=== PATIENT | female | born 1980 | race Caucasian/White ===

== ENCOUNTER → 2021-03-09 | Outpatient (CLI) | payer OTHER, SELFPAY ==
[2021-03-12 13:29] LABS: HPV APTIMA, High Risk Negative (Negative)
== END | disposition home or self-care (01) ==
PROVIDERS: Visit Provider Nurse Practitioner Women's Health
DX: Z12.4 Encounter for screening for malignant neoplasm of cervix (principal)
CPT/HCPCS: 87624; 88175; G0145

== ENCOUNTER → 2021-03-31 13:48 | Outpatient (CLI) | payer OTHER, SELFPAY ==
--- NOTE | 2021-03-31 13:55 | US_ITS ---
STUDY: ULTRASOUND OF THE FEMALE PELVIS - COMPLETE REASON FOR EXAM: Female, 41 years old. Pelvic pain and bloating LMP: Not specified TECHNIQUE: Transabdominal and Transvaginal TECHNICAL QUALITY: Adequate. COMPARISON: 03/31/2021 FINDINGS: The uterus is anteverted and is in a midline position. The uterus measures 9.1 x 5.7 x 4.9 cm. There is a Nabothian cyst of the cervix. The endometrium measures 12 mm in thickness, and is hyperechoic. There is no demonstrated endometrial mass. There is no demonstrated myometrial mass. I.U.D. - The patient does not have an I.U.D. The right ovary is visualized. The right ovary measures 4.5 x 4.0 x 3.8 cm. Solid lesion within the right ovary with internal vascularity measures up to 2.9 cm. There is normal arterial and normal venous vascularity. The left ovary is visualized. The left ovary measures 2.8 x 1.3 x 1.4 cm. There is no left ovarian cyst or ovarian mass. There is no visualized left adnexal mass or complex lesion. There is increased arterial and normal venous vascularity. There is no fluid in the cul-de-sac. Polycystic ovary disease: No. US/Transvaginal Non- IMPRESSION: Complex solid vascular lesion within the right ovary measures up to 2.9 cm. This may represent a hemorrhagic cyst and 6-12 weeks follow-up is recommended to document resolution. Prominent left pelvic vasculature may indicate pelvic congestion syndrome in the appropriate clinical setting. Electronically Signed: Irineo Saavedra MD at 19:36 EDT Tel , Service support ,
--- NOTE | 2021-03-31 13:55 | BI_ITS ---
MAMMOGRAPHY - BILATERAL SCREENING REASON FOR EXAM: Female, 41 years old. Routine annual screening examination. PERTINENT HISTORY: Non-contributory. TECHNIQUE: Digital bilateral breast ellie (3D mammographic acquisition) in the CC and MLO projections. 2-D mediolateral oblique (MLO) and craniocaudad (CC) views of both breasts were obtained. CAD: Full Field Digital Mammography with Computer Added Detection was performed. COMPARISON: Comparison is made with prior outside examination dated 06/14/2012. FINDINGS: Breast Composition: The breasts are extremely dense, which lowers the sensitivity of mammography. Questionable 1.4 cm nodular density in the superior mid right breast. Correlation with ultrasound is recommended. No other significant abnormalities are identified. BI/SCRN MAMM (CAD)W/ELLIE BILAT IMPRESSION: Questionable 1.4 cm nodule in the upper mid right breast at the 12 o''clock position. Correlation with ultrasound is recommended. ASSESSMENT CATEGORY: BIRADS Category 0: Incomplete. Need additional imaging evaluation. A letter regarding these results will be sent to the patient by the facility within 30 days. Approximately 10% of breast cancers are not detected by mammography. A normal mammogram should not delay biopsy of a clinically suspicious abnormality. [id number] Electronically Signed: Adi Chowdary MD at 15:28 EDT , Service support ,
--- NOTE | 2021-03-31 13:55 | US_ITS ---
STUDY: ULTRASOUND OF THE FEMALE PELVIS - COMPLETE REASON FOR EXAM: Female, 41 years old. Pelvic pain and bloating LMP: Not specified TECHNIQUE: Transabdominal and Transvaginal TECHNICAL QUALITY: Adequate. COMPARISON: 03/31/2021 FINDINGS: The uterus is anteverted and is in a midline position. The uterus measures 9.1 x 5.7 x 4.9 cm. There is a Nabothian cyst of the cervix. The endometrium measures 12 mm in thickness, and is hyperechoic. There is no demonstrated endometrial mass. There is no demonstrated myometrial mass. I.U.D. - The patient does not have an I.U.D. The right ovary is visualized. The right ovary measures 4.5 x 4.0 x 3.8 cm. Solid lesion within the right ovary with internal vascularity measures up to 2.9 cm. There is normal arterial and normal venous vascularity. The left ovary is visualized. The left ovary measures 2.8 x 1.3 x 1.4 cm. There is no left ovarian cyst or ovarian mass. There is no visualized left adnexal mass or complex lesion. There is increased arterial and normal venous vascularity. There is no fluid in the cul-de-sac. Polycystic ovary disease: No. US/Pelvic (Non ) IMPRESSION: Complex solid vascular lesion within the right ovary measures up to 2.9 cm. This may represent a hemorrhagic cyst and 6-12 weeks follow-up is recommended to document resolution. Prominent left pelvic vasculature may indicate pelvic congestion syndrome in the appropriate clinical setting. Electronically Signed: Irineo Saavedra MD at 19:36 EDT Tel , Service support ,
== END ==
PROVIDERS: Referring Provider Nurse Practitioner Women's Health; Visit Provider Nurse Practitioner Women's Health
DX: Z12.31 Encounter for screening mammogram for malignant neoplasm of breast (principal); R10.2 Pelvic and perineal pain; R14.0 Abdominal distension (gaseous); R53.83 Other fatigue
CPT/HCPCS: 76830; 76856; 77063; 77067

== ENCOUNTER → 2021-04-06 14:28 | Outpatient (CLI) | payer OTHER, SELFPAY ==
--- NOTE | 2021-04-06 14:34 | BI_ITS ---
MAMMOGRAPHY - UNILATERAL DIAGNOSTIC: RIGHT BREAST REASON FOR EXAM: Female, 41 years old. Abnormal screening mammogram. PERTINENT HISTORY: Non-contributory. TECHNIQUE: Compression spot views of the right breast in the mediolateral oblique and craniocaudad views were obtained. CAD: Full Field Digital Mammography with Computer Added Detection was performed. COMPARISON: Comparison is made with prior spot mammogram dated 03/31/2021. FINDINGS: Breast Composition: The breasts are extremely dense, which lowers the sensitivity of mammography. Persistent faint nodular density seen in the superior midportion of the right breast. Correlation with ultrasound is recommended. No other significant abnormalities are identified. BI/DIAG MAMM W/CAD, UNILAT IMPRESSION: Persistent nodular density as described. Correlation with a directed sonographic evaluation is recommended. ASSESSMENT CATEGORY: BIRADS Category 0: Incomplete. Need additional imaging evaluation. A letter regarding these results will be sent to the patient by the facility within 30 days. Approximately 10% of breast cancers are not detected by mammography. A normal mammogram should not delay biopsy of a clinically suspicious abnormality. Electronically Signed: Adi Chowdary MD at 15:21 EDT , Service support ,
--- NOTE | 2021-04-06 14:38 | US_ITS ---
STUDY: ULTRASOUND BREAST - RIGHT REASON FOR EXAM: Female, 41 years old. Abnormal screening mammogram. TECHNIQUE: Axial and longitudinal images of the RIGHT breast were performed with a high resolution ultrasound transducer. # OF IMAGES: 35 COMPARISON: Comparison is made with prior mammogram dated 03/31/2021 and 04/06/2021. FINDINGS: RIGHT Breast: The upper half of the breast was examined by ultrasound. No sonographic abnormality is seen. With the persistent faint nodular density seen on the additional mammographic views, MRI is recommended for further evaluation. US/Breast Limited Unilateral IMPRESSION: Unremarkable breast ultrasound. Correlation with MRI is recommended. ASSESSMENT CATEGORY: BIRADS Category 3: Probably Benign - Short-Interval Follow-up Suggested. A letter regarding these results will be sent to the patient by the facility within 30 days. Electronically Signed: Adi Chowdary MD at 8:14 EDT , Service support ,
[2021-04-06 17:23] LABS: Absolute Neutrophil Count 5.1 X10^3/uL (2.0-7.7); Basophil# 0.03 X10^3/uL; Basophil% 0.4 % (0-1); Eosinophil# 0.08 X10^3/uL; Eosinophils% 1.2 % (0-5); Hematocrit 39.1 % (37-47); Hemoglobin 12.8 g/dL (12.0-15.0); Lymphocyte % 14.9 % (19-41); Mean Corp Hgb Conc 32.7 g/dL (32-36); Mean Corpuscular Hgb 29.2 pg (27.0-32.0); Mean Corpuscular Volume 89.1 fL (81-99); Mean Platelet Vol. 11.5 fl (6.2-12.0); Monocyte# 0.47 X10^3/uL; NRBC Flagged by Analyzer 0 % (0-5); Neutrophil # 5.11 X10^3/uL (2.7-7.7); Neutrophil % 76.2 % (47-70); Platelet Count 178 K/mm3 (150-450); RBC Distribution Width CV 13.2 % (11.6-14.6); RBC Distribution Width SD 43.1 fl (35.1-43.9); Red Blood Count 4.39 M/mm3 (4.2-5.4); White Blood Count 6.7 K/mm3 (4.4-11.0)
[2021-04-06 18:01] LABS: Vitamin D,25 Hydroxy 34.6 ng/mL
[2021-04-06 18:16] LABS: Thyroid Stim Hormone (TSH) 2.32 uIU/mL (0.358-3.74)
[2021-04-08 16:28] LABS: Cancer Antigen 125 2303 20.2 U/mL (0.0-38.1); Carcinoembryonic Antigen 2139 0.9 ng/mL (0.0-4.7)
== END ==
PROVIDERS: Referring Provider Nurse Practitioner Women's Health; Visit Provider Nurse Practitioner Women's Health
DX: N63.12 Unspecified lump in the right breast, upper inner quadrant (principal); R92.8 Other abnormal and inconclusive findings on diagnostic imaging of breast; R10.2 Pelvic and perineal pain; R53.83 Other fatigue; Z13.21 Encounter for screening for nutritional disorder; Z13.29 Encounter for screening for other suspected endocrine disorder
CPT/HCPCS: 36415; 76642; 77065; 82306; 82378; 84443; 85025; 86304

== ENCOUNTER → 2021-04-23 17:54 | Outpatient (CLI) | payer OTHER, SELFPAY ==
--- NOTE | 2021-04-23 17:54 | MRI_ITS ---
STUDY: MR PELVIS WITH T WITHOUT CONTRAST REASON FOR EXAM: Female, 41 years old. ovarian mass-RIGHT TECHNIQUE: Standardized fat and water weighted pulse sequences were obtained in all 3 orthogonal planes, pre-and post contrast administration. IV 12mL Dotarem was administered for the contrast portion of the examination. COMPARISON: Ultrasound 03/31/2021. FINDINGS: Normal urinary bladder. Normal visualized small intestine. Normal visualized colon. Normal visualized uterus. Normal visualized adnexa. Multiple nabothian cysts in the cervix. There is a 2.1 cm dominant follicle in the right ovary. No suspicious enhancement. There is no pelvic fluid. There is no pelvic mass lesion or lymphadenopathy. Normal visualized pelvic arteries. Normal osseous structures. Normal abdominal wall. MRI/Pelvis W/WO Contrast IMPRESSION: Normal unenhanced and enhanced MRI of the pelvis. No suspicious enhancing right ovarian mass. Electronically Signed: Hank Salas MD at 20:29 EDT Tel , Service support ,
== END ==
PROVIDERS: PCP Family Medicine; Referring Provider Nurse Practitioner Women's Health; Visit Provider Nurse Practitioner Women's Health
DX: R10.2 Pelvic and perineal pain (principal)
CPT/HCPCS: 72197; A9575

== ENCOUNTER → 2021-04-27 12:35 | Outpatient (CLI) | payer OTHER, SELFPAY ==
--- NOTE | 2021-04-27 12:36 | MRI_ITS ---
STUDY: BILATERAL BREAST MR WITHOUT AND WITH CONTRAST REASON FOR EXAM: Female, 41 years old. Probably benign finding in the right breast on mammography. TECHNIQUE: Multi-sequence multi-echo imaging of both breasts was performed with a dedicated breast coil. T1-weighted and T2-weighted images were performed before the administration of contrast. T1-weighted images were also performed after the administration of 12ml Dotarem via IV without complications. COMPARISON: Bilateral screening mammogram dated 03/31/2021, right diagnostic mammogram dated 04/06/2021 and right breast ultrasound dated 04/06/2021. FINDINGS: RIGHT BREAST: The breast tissue is heterogeneously dense with minimal background enhancement. There are no abnormal enhancing masses or areas of non-mass enhancement in the right breast. LEFT BREAST: The breast tissue is heterogeneously dense with minimal background enhancement. There are no abnormal enhancing masses or areas of non-mass enhancement in the left breast. There are no enlarged or abnormal lymph nodes. There is no abnormality in the visualized regions of the chest or liver. MRI/Breast Bilateral W/O and W IMPRESSION: No abnormality corresponding to the mammographic or ultrasonographic findings. A 6 month follow-up right mammogram and right breast ultrasound recommended. CATEGORY: BIRADS Category 3: Probably Benign - Short-Interval Follow-up Suggested. A letter regarding these results will be sent to the patient by the facility within 30 days. Electronically Signed: Cedric Mccray MD at 10:39 EDT , Service support ,
== END ==
PROVIDERS: PCP Family Medicine; Referring Provider Nurse Practitioner Women's Health; Visit Provider Nurse Practitioner Women's Health
DX: R92.8 Other abnormal and inconclusive findings on diagnostic imaging of breast (principal)
CPT/HCPCS: 77049; A9575; A4216; C8908

== ENCOUNTER → 2021-05-04 08:40 | Outpatient (CLI) | payer OTHER, SELFPAY ==
[2021-05-04 10:29] LABS: Cholesterol 194 mg/dL (200); Glucose 97 mg/dL (74-106); High Density Lipoprotein 79 mg/dL; Triglycerides 81 mg/dL; Very Low Density Lipoprotein 16 mg/dL (5-40)
== END ==
PROVIDERS: PCP Family Medicine; Referring Provider Nurse Practitioner Women's Health; Visit Provider Nurse Practitioner Women's Health
DX: R53.83 Other fatigue (principal); Z13.220 Encounter for screening for lipoid disorders; Z13.1 Encounter for screening for diabetes mellitus
CPT/HCPCS: 36415; 80061; 82947

== ENCOUNTER → 2021-05-27 | Outpatient (CLI) | payer OTHER, SELFPAY ==
--- NOTE | 2021-05-27 11:50 | EMB_PTH ---
PATIENT: YVAN ARMENTA LOC: [facility] U#:[id number] AGE/SX: 41/F ROOM: RE05/27/[address]: Dr. Moriah Echevarria DO : 1980 BED: DIS: 05/27/2021 SPEC #: [id number] RECD: 05/27/21 14:27 STATUS: RAUL RIGO #: [id number] JACOBO: 05/27/21 11:[address]: Moriah Echevarria DEPT: SURGICAL PATHOLOGY RECD BY: Gisselle Pierson ENTERED: 05/28/21 12:21 SP TYPE: ENDOM BX/C RD DR: Dr. Lamont Mcneal DO Tissues: Endometrium, NOS Procedures: Surgery Specimen Level IV HEADER OPERATION: Endometrial biopsy PRE-OP DIAGNOSIS: N92.0 TISSUE SUBMITTED: Endometrial lining MICROSCOPIC DIAGNOSIS Endometrial biopsy: Secretory endometrium. SJ:corby 05/29/2021 MICROSCOPIC DESCRIPTION Slides are reviewed. GROSS DESCRIPTION Received is one container labeled with the patient's name and not further designated. The specimen consists of multiple irregular fragments of wynn soft tissue that in aggregate measure 2 x 1 x 0.1 cm. The specimen is totally submitted in one cassette. / SJ:corby 05/28/21 TC:4 CPT: 61634
== END | disposition home or self-care (01) ==
LOC: LABSPEC 14:39
PROVIDERS: PCP Family Medicine; Referring Provider Obstetrics & Gynecology; Visit Provider Obstetrics & Gynecology
DX: N92.0 Excessive and frequent menstruation with regular cycle (principal)
CPT/HCPCS: 88305

== ENCOUNTER 2021-06-30 08:00 | Day surgery (SDC) | payer OTHER, SELFPAY ==
[2021-06-30] VITALS (9 sets, daily range): BP systolic 91–128; BP diastolic 61–79; PULSE 55–69; RESP 16–18; TEMP 35.9–36.8; O2SAT 99–100; BMI 26.4
--- NOTE | 2021-06-30 07:23 | PCM.HP.BLA ---
History and Physical Date of Admission: 06/30/21 MR#:[id number]: YVAN ARMENTA #:[id number]:1980 Provider:Dr. Moriah Echevarria, DOAge/Sex: 41/F [facility] Int[facility] Visit Reasons: HYST CONSULT Allergies Penicillins Allergy (Intermediate, Verified 05/27/21 11:09) PT UNSURE OF REACTION Medications NK 05/04/21 [History Confirmed 05/27/21] PFSH Surgical History H/O umbilical hernia repair Family History Mother Lung cancer Stomach cancer Social History household members: spouse, children and other number of children: 2 current occupational status: employed current occupation: [employer] history of recent travel: Yes sexually active: Yes Smoking Status: Former smoker alcohol intake: current alcohol intake frequency: a few times a month substance use type: does not use what type of physical activity do you participate in: weight training frequency: daily seatbelt use: always do you feel safe at home: Yes additional social history: - [employer] HPI HYST CONSULT Details: YVAN ARMENTA is a 41 year old who presents for a discussion about hysterectomy. She has had worsening menses over the last 6 months and has discussed with [place] benefits vs risks of alternative options. She has a small nodule on the right ovary that has been worked up and found to be benign. She is willing and able to have an EMB today. Pregancy History 2 Elective abortions Hx Para 2 Spontaneous abortions Hx # Term Pregnancies Ectopic pregnancies Hx # Pregnancies Multiple births # of living children 2 Past Pregnancies Del. Date Name GA/Weeks Outcome Route Bth Weight Gen Labor Lgth Anesthesia Del Locatn Provider FOB Unknown Arminta 2003 Unknown Laurent 2007 ROS Const ROS Unobtainable: All systems reviewed & are unremarkable except as noted in H Resp Resp: Reports system reviewed and no additional complaints, except as documented; Denies cough GI GI: Reports as per HPI Psych Psych: Reports system reviewed and no additional complaints, except as documented Exam Const General: cooperative, healthy appearing, comfortable and no acute distress Resp Effort & Inspection: normal respiratory effort Skin General: no rashes or lesions noted Psych Appearance: grossly normal Speech and Movement: speech and movement normal Office Procedures Endometrial Biopsy Endometrial Biopsy Test: Yes declined Consent Signed: Yes Time out checklist: patient, procedure, positioning of patient, supplies available and allergies confirmed Time out time: 12:03 tenaculum used: No dilator used: No Details: Cervix prepped with betadine and pipelle inserted into uterus without complication. Specimen obtained and sent to lab for analysis. All instruments removed from vagina without complications. Excellent hemostasis noted. Coding Level of Care Code Off vis,est,level 4 Diagnoses Pelvic pain R10.2 Dysmenorrhea N94.6 Menorrhagia with regular cycle N92.0 CPT Codes Endometrial Biopsy (45959) Assessment and Plan Assessment and Plan (1) Pelvic pain: Status: Acute (2) Dysmenorrhea: Status: Acute (3) Menorrhagia with regular cycle: Status: Acute Comment: JV/surgical consult TVDavid, YVON, RO 05/27 Orders: Orders: Endometrial Biopsy Today N92.0 Plan - Dr. Moriah Andrade, DO: EMB done today. Plan for [facility] BS RO next available time. will call with abnormal results of the EMB. UPDATE- I have seen the patient and performed any clinically relevant updates to the history and physical exam. EMB was benign. Dr. Moriah Echevarria, DO
[2021-06-30] MEDS: Lactated Ringers 1,000 ML 40 ML IV (08:53)
[2021-06-30 09:00] LABS: Internal QC Validated? YES +Cl - CLEAR BKGD; Pregnancy, Urine Negative Negative
[2021-06-30 09:08] LABS: Hematocrit 40.9 % (37-47); Hemoglobin 13.6 g/dL (12.0-15.0); Mean Corp Hgb Conc 33.3 g/dL (32-36); Mean Corpuscular Hgb 28.5 pg (27.0-32.0); Mean Corpuscular Volume 85.7 fL (81-99); Mean Platelet Vol. 12.2 fl (6.2-12.0); Platelet Count 178 K/mm3 (150-450); RBC Distribution Width CV 13.2 % (11.6-14.6); RBC Distribution Width SD 40.9 fl (35.1-43.9); Red Blood Count 4.77 M/mm3 (4.2-5.4); White Blood Count 5.2 K/mm3 (4.4-11.0)
[2021-06-30] MEDS: Phenazopyridine 95 MG Tablet 190 MG PO (09:13)
[2021-06-30] MEDS: Acetaminophen 500 MG Tablet 1000 MG PO (09:13)
[2021-06-30] MEDS: Gabapentin 600 MG Tablet PO (09:13)
[2021-06-30] MEDS: Celecoxib 200 MG Capsule 400 MG PO (09:13)
[2021-06-30 09:15] LABS: Magnesium 2.2 mg/dL (1.6-2.6)
[2021-06-30 09:35] LABS: Bedside Glucose 90 mg/dL (70-110)
--- NOTE | 2021-06-30 10:04 | PCM.DC ---
Discharge Instructions Diet Discharge Diet: No restrictions Activity May resume sexual activity in: 6 weeks Weight Bearing Status: Full weight bearing Dressing / Incision Call your doctor if your incision/area has: Continuous Slow Oozing, Sudden Increased Bleeding, Increased Pain/ Swelling, Increased Redness and Foul Smelling Discharge Call your doctor if you observe: Fever of 101 or Higher, Using more than 1 pad per hour, Shortness of breath, Chest pain and Uncontrolled pain Suture Line Care: Avoid Pulling/Pushing and Avoid Pinching/Bending Remove Dressing in: 1 week (if present) Cleanse incision/area with: Soap & Water and Keep Dressing Clean & Dry Follow Up Care Please Follow Up With: Moriah Echevarria DO When: Call to make an appointment with your doctor for a postop visit in 2 and 6 weeks Test Results: Test results from this visit will be discussed in further detail at your follow-up appointment, if applicable. Discharge Plan Admission Primary Reason for Your Visit: hysterectomy Attending Provider: Moriah Echevarria Primary Care Provider: Lamont Mcneal Instructions Patient Instructions: After Laparoscopic ... Discharge Orders/Prescriptions Prescriptions: New ibuprofen 800 mg tablet 800 mg PO Q8H PRN (Reason: pain) 7 Days Qty: 30 RF: 0 oxycodone-acetaminophen [Percocet] 5-325 mg tablet 1 tab PO Q4H PRN (Reason: pain) 7 Days Qty: 28 RF: 0 docusate sodium [Colace] 100 mg capsule 100 mg PO DAILY 14 Days Qty: 14 RF: 0 Referrals / Follow Up: Lamont Mcneal DO [Primary Care Provider] - Disposition Disposition (needs filled in before D/C Order can be placed): Home, Self Care
--- NOTE | 2021-06-30 10:15 | HYST_PTH ---
PATIENT: YVAN ARMENTA LOC: [facility] U#:[id number] AGE/SX: 41/F ROOM: RE06/30/[address]: Dr. Moriah Echevarria DO : 1980 BED: DIS: 06/30/2021 SPEC #: [id number] RECD: 06/30/21 14:18 STATUS: RAUL SIERRA #: [id number] JACOBO: 06/30/21 10:[address]: Moriah Echevarria DEPT: SURGICAL PATHOLOGY RECD BY: Nettie Tatum ENTERED: 07/01/21 09:46 SP TYPE: HYSTERECT OTHR DR: Dr. Lamont Mcneal DO Tissues: Uterus, NOS Procedures: Surgery Specimen Level V HEADER OPERATION: ERAS, hysterectomy, LAVH, bilateral salpingectomy, right oophorectomy PRE-OP DIAGNOSIS: Pelvic pain, dysmenorrhea TISSUE SUBMITTED: Uterus, cervix, bilateral fallopian tubes and right ovary MICROSCOPIC DIAGNOSIS Uterus, hysterectomy: Cervix ? mild chronic inflammation. Endometrium ? secretory endometrium. Myometrium ? focal superficial adenomyosis. Right ovary ? corpus luteal cysts and corpora albicantia. Right fallopian tube ? acute salpingitis. Left fallopian tube ? benign paratubal cyst. AM:corby 07/02/2021 MICROSCOPIC DESCRIPTION Slides are reviewed. GROSS DESCRIPTION Received in fixative is one container labeled with the patient's name and designated uterus. The specimen consists of a uterus with attached right and left fallopian tubes and attached right ovary. The uterus with cervix measures 10 x 5.5 x 5 cm and weighs 135 gm. The ectocervix is grossly unremarkable. The endocervical canal measures 3.5 cm in length and is grossly unremarkable. The triangular endometrial cavity measures 3 x 2.8 cm. The velvety, reddish-wynn endometrium measures up to 0.2 cm in thickness. The myometrium measures 2.2 cm in length and is grossly unremarkable. The smooth, glistening cystic yellow-wynn right ovary measures 4 x 2.2 x 2 cm. Serial sections reveal multiple cysts ranging in size from 0.2 to 1.5 cm containing clear to bloody fluid. The adjacent right fallopian measures 6.5 cm in length and 0.8 cm in average diameter. A normal fimbrial end is present. No tubo-ovarian adhesions are identified. The left fallopian tube measures 7 cm in length and 0.7 cm in average diameter and contains a smooth, glistening paratubal cyst containing clear fluid. The cyst measures 1 cm in greatest dimension. Ld Teacher sections are submitted in nine cassettes as follows: 1 - anterior cervix, 2 - posterior cervix, 3 & 4 - anterior uterine wall, 5 & 6 - posterior uterine wall, 7 - right ovary, 8??right fallopian tube, 9 - left fallopian tube and paratubal cyst. / AM:corby 07/01/21 TC:2 CPT: 45091
[2021-06-30] MEDS: Bupivacaine 0.25% 30 ML Vial (10:46)
[2021-06-30] MEDS: Lubricating Jelly 60 GM Tube 30 GM (10:46)
[2021-06-30] MEDS: Vasopressin 20 UNITS/ML Vial (11:00)
--- NOTE | 2021-06-30 12:15 | PCM.OP.BLANK ---
Operative Report Date of Procedure: 06/30/21 Preoperative diagnosis : menorrhagia, failed conservative therapy, Right ovarian nodule Postoperative diagnosis : menorrhagia, failed conservative therapy, Right ovarian nodule procedure: Laparoscopically assisted vaginal hysterectomy, bilateral salpingectomy, right oophorectomy, and cystoscopy Surgeon: Dr. Moriah Andrade DO Registry Nurse: J[employer] ANALYST Findings: 8 cm size uterus normal, bilateral fallopian tubes,small nodule on the right ovary, mild amount of endometriosis in the cul-de-sac. On cystoscopy, there were positive ureteral jets seen flowing from both ureters, and no leaking at approximately 250 cc of normal saline Estimated blood loss: 100 cc Urine output: 500 cc Fluids given: 1000 cc of crystalloid Complications: None Patient received preoperative antibiotics and SCDs were on preoperatively. Patient was taken back to the operating room and placed in the dorsal lithotomy position. General anesthesia was induced and patient was prepped and draped in normal sterile fashion. Uterine manipulator was placed inside the uterus and Patel catheter placed in the bladder. The umbilicus was grasped with towel clamps and an intraumbilical incision was made after injecting with quarter percent Marcaine and a Veress needle entered into the abdomen confirmed to be intra-abdominal with a low opening pressure. Abdomen was insufflated with CO2 gas and the Veress needle removed and the 5 mm trocar was placed under direct visualization without complication. Right and left lower quadrants were transilluminated and injected with quarter percent Marcaine and 5 mm ports placed under direct visualization. Pelvis was well visualized see operative findings for additional information. Bilateral fallopian tubes were identified and transected with the LigaSure device across the mesosalpinx to the level of the utero-ovarian ligament which was also transected with the LigaSure device. The broad ligament was opened up by transecting the round ligament bilaterally and skeletonizing the uterine vessels bilaterally and creating a bladder flap using the LigaSure device. The uterine arteries were transected bilaterally with good visualization of the bladder and the ureters were seen to be inferior lateral to the operative area. Attention was then paid to the vaginal portion of the procedure and the cervix was grasped with Vane clamps and circumferentially injected with dilute vasopressin. A circumferential incision was made and the vaginal mucosa was mobilized off posteriorly and the cul-de-sac entered into sharply and a longneck speculum placed. The anterior cul-de-sac was then identified and entered into sharply. The uterosacral ligaments were clamped cut and suture ligated with 0 Monocryl bilaterally followed by the cardinal ligaments which were clamped cut and suture ligated bilaterally with 0 Monocryl. The uterus serially descended and was removed without difficulty with minimal morcellation. Pelvic sidewall pedicles were checked and noted to have excellent hemostasis. The vaginal mucosa was reapproximated incorporating the posterior peritoneum. This was reapproximated using 0 Vicryl [id number] sutures. Excellent hemostasis was noted. The cystoscopy was then performed and bilateral ureteral strong spray was noted and the bladder was noted to have no abnormality or lesions seen. Patel catheter was replaced and then attention paid to the abdominal portion of the procedure again. The pelvis and cul-de-sac was well visualized and no significant active bleeding noted but some raw areas were seen on the peritoneum and therefore Colten was applied. Pressure was taken down and the areas visualized and noted of excellent hemostasis. All ports were removed under direct visualization without complication and the abdomen was desufflated of air. The instruments removed from the abdomen and the vagina vaginal sweep was negative. Port sites on the abdomen were closed with 4-0 Monocryl interrupted sutures and Steri's and windows were applied. She was awoken and taken recovery in stable condition. Procedures Urinary/Genital 52xxx-[id number]: 64030 LAVH <250gr Uterus
== END 2021-06-30 16:33 | disposition home or self-care (01) ==
LOC: SDC 08:01 → AC 08:03
PROVIDERS: Anesthesiology; PCP Family Medicine; Referring Provider Obstetrics & Gynecology; Visit Provider Obstetrics & Gynecology
PROC: 0UT9FZZ Resection of Uterus, Via Natural or Artificial Opening With Percutaneous Endoscopic Assistance (ICD-10-PCS; CPT 58552; principal; 2021-06-30 09:50)
DX: N80.3 Endometriosis of pelvic peritoneum (principal); N72 Inflammatory disease of cervix uteri; N80.0 Endometriosis of uterus; N83.11 Corpus luteum cyst of right ovary; N70.01 Acute salpingitis; N83.8 Other noninflammatory disorders of ovary, fallopian tube and broad ligament; Z87.891 Personal history of nicotine dependence
CPT/HCPCS: 58552; 81025; 82962; 83735; 85027; 86850; 86900; 86901; 88307; J7120; J2405

== ENCOUNTER 2021-10-30 14:25 | Outpatient (CLI) | payer OTHER, SELFPAY ==
--- NOTE | 2021-10-30 14:27 | BI_ITS ---
MAMMOGRAPHY - UNILATERAL DIAGNOSTIC: RIGHT BREAST REASON FOR EXAM: Female, 41 years old. Six-month follow-up examination. PERTINENT HISTORY: Non-contributory. TECHNIQUE: Digital unilateral breast olman (3D mammographic acquisition) in the CC and MLO projections. 2-D mediolateral oblique (MLO) and craniocaudad (CC) views of both breasts were obtained. CAD: Full Field Digital Mammography with Computer Added Detection was performed. COMPARISON: Comparison is made with prior study of 04/06/2021 and 03/31/2021. FINDINGS: Breast Composition: The breasts are heterogeneously dense, which may obscure small masses. There are no dominant masses or suspicious calcifications. No definite abnormality is seen at this time. Correlation with ultrasound is recommended. No other significant abnormalities are identified. BI/DIAG MAMM W/CAD, UNILAT IMPRESSION: No definite abnormality is seen at this time. Correlation with ultrasound is recommended. ASSESSMENT CATEGORY: BIRADS Category 0: Incomplete. Need additional imaging evaluation. A letter regarding these results will be sent to the patient by the facility within 30 days. Approximately 10% of breast cancers are not detected by mammography. A normal mammogram should not delay biopsy of a clinically suspicious abnormality. Electronically Signed: Adi Chowdary MD at 15:04 EDT ,
--- NOTE | 2021-10-30 14:27 | US_ITS ---
STUDY: ULTRASOUND BREAST - RIGHT REASON FOR EXAM: Female, 41 years old. Short interval follow-up TECHNIQUE: Axial and longitudinal images of the RIGHT breast were performed with a high resolution ultrasound transducer. # OF IMAGES: 38 COMPARISON: Diagnostic mammogram earlier today FINDINGS: RIGHT Breast: Heterogeneous background echotexture. Multiple longitudinal and transverse ultrasound images of the superior right breast failed to demonstrate a discrete solid or cystic mass. Some dense breast parenchyma with some dilated ducts are noted.: A 5 mm intramammary lymph node is noted. US/Breast Limited Unilateral IMPRESSION: Normal right breast ultrasound. ASSESSMENT CATEGORY: BIRADS Category 3: Probably Benign - Short-Interval Follow-up Suggested. A letter regarding these results will be sent to the patient by the facility within 30 days. Electronically Signed: Juan Antonio Grace MD at 14:05 EDT ,
== END 2021-10-30 23:59 | disposition home or self-care (01) ==
LOC: OPBI 14:26
PROVIDERS: PCP Family Medicine; Referring Provider Nurse Practitioner Women's Health; Visit Provider Nurse Practitioner Women's Health
DX: R92.2 Inconclusive mammogram (principal)
CPT/HCPCS: 76642; 77061; 77065; G0279

== ENCOUNTER → 2022-01-28 | Outpatient (CLI) | payer OTHER, SELFPAY ==
--- NOTE | 2022-01-28 15:08 | RAD_ITS ---
STUDY: X-RAY - LUMBAR SPINE REASON FOR EXAM: Female, 42 years old. LEG PAIN TECHNIQUE: 4 view(s) of the lumbar spine were obtained. COMPARISON: None FINDINGS: Vertebral bodies are normal height. No definite fracture demonstrated. No subluxation. Loss of the normal lumbar lordosis. No paravertebral soft tissue mass identified. RAD/L/S Spine Min 4 Views IMPRESSION: Relative straightening of the normal curvature may be due to positioning or muscle spasm. No evidence of fracture or subluxation. Electronically Signed: Lilliana Blue MD at 7:58 EDT ,
== END | disposition home or self-care (01) ==
LOC: MTRAD 15:06
PROVIDERS: PCP Family Medicine; Referring Provider Family Medicine; Visit Provider Family Medicine
DX: M54.17 Radiculopathy, lumbosacral region (principal)
CPT/HCPCS: 72110